=== PATIENT | male | born 1945 | race Caucasian/White ===

== ENCOUNTER 2020-07-11 07:34 | Outpatient (CLI) | payer MEDICARE, SELFPAY ==
[2020-07-12 13:29] LABS: SARS-CoV-2 RNA PCR Negative
== END 2020-07-11 07:35 | disposition home or self-care (01) ==
LOC: CHSLAB 07:40
PROVIDERS: PCP Internal Medicine; Visit Provider Internal Medicine Gastroenterology
DX: Z01.818 Encounter for other preprocedural examination (principal); Z20.822 Contact with and (suspected) exposure to COVID-19
CPT/HCPCS: C9803; U0003; U0005

== ENCOUNTER 2020-07-14 00:59 | Day surgery (SDC) | payer MEDICARE, BC, SELFPAY ==
[2020-07-09 09:34] VITALS: BMI 27.8
[2020-07-14 10:02] VITALS: BP 156/76; PULSE 57; RESP 16; TEMP 36.7; O2SAT 99
--- NOTE | 2020-07-14 10:13 | WPDANESEPPF ---
Anes - Initial Pre Proc Eval Procedure: Operation Date: 07/14/20 11:30 Proposed Procedures p Esophagogastroduodenoscopy & Colonoscopy - Chuckie Emmanuel MD Date/Time: 07/14/20 10:13 Surgeon: Chuckie Emmanuel MD Pre Op Diagnosis: Anemia Patient Data Age: 74 Gender: M Height: 1.83 m Weight: 100.2 kg Last Vital Signs Temp 36.7 C 07/14/20 10:02 Pulse 57 L 07/14/20 10:02 Resp 16 07/14/20 10:02 BP 156/76 H 07/14/20 10:02 Pulse Ox 99 07/14/20 10:02 Allergies Allergy/AdvReac Type Severity Reaction Status Date / Time No Known Allergies Allergy Verified 07/14/20 10:01 Home Medications Medication Instructions Recorded Confirmed Type amlodipine 10 mg tablet 10 mg PO DAILY 07/01/20 07/09/20 History fluoxetine 20 mg capsule 20 mg PO DAILY 07/01/20 07/09/20 History lisinopril 40 mg tablet 40 mg PO DAILY 07/01/20 07/09/20 History lovastatin 20 mg tablet 20 mg PO DAILY 07/01/20 07/09/20 History multivit with min-folic acid 1 tablet PO DAILY 07/09/20 07/09/20 History [Adult One Daily Multivitamin] omega 1-elt-xwh-fish oil [Fish Oil] 1 cap PO TID 07/09/20 07/09/20 History vitamin B complex [B 1 tablet PO DAILY 07/09/20 07/09/20 History Complex-Vitamin B12] Patient hx anesthesia problems: none Family hx anesthesia problems: none PMFSH Past Medical History Medical History (Updated 07/14/20 @ 10:15 by Rodrigo Rivers MD) Anxiety Colon cancer screening Depression Hyperlipidemia Hypertension Obesity Social History Social History (Updated 07/01/20 @ 14:15 by Dianna Barnard CMA) Smoking packs per day: 0.5 Smoking cigarettes per day: 10.0 Years smoked: 25 Smoking pack-years: 12.50 Smoking status: Former smoker Tobacco type: cigarettes Alcohol intake: current Substance use: never Substance use type: does not use Living arrangements: alone Gender identity (if verbalized by the patient): Male Spiritual care concerns: No Anes - Eval Final PreProcedure Day of Procedure 07/14/20 10:13 Patient weight: obese Heart: regular rate and rhythm Lungs: clear to auscultation and normal air movement Airway: Mallampati scale class II Neurological: alert and oriented Last oral intake: >/= 8 hours ASA classification: III Emergent: no Anesthetic plan: proceed Anesthesia type and monitoring: general GIVS Informed Consent: The patient's anesthetic plan and its attendant risks and benefits were discussed with the patient/family/POA. Questions were solicited and answers provided to the satisfaction of the patient/family/POA.
[2020-07-14] MEDS: LACTATED RINGERS 1,000 ML 150 ML IV CONT (10:17)
--- NOTE | 2020-07-14 10:34 | WPDHPUPDATE1 ---
History and Physical Update Update Date/Time: 07/14/20 10:34 History and Physical has been reviewed, including an updated exam of the patient. There are NO changes in the patient's condition. Risks, benefits, and alternatives have been discussed and questions answered. Patient agrees to proceed with procedure.
[2020-07-14 11:00] VITALS: BP 123/65; PULSE 66; RESP 18; O2SAT 100
[2020-07-14 11:10] VITALS: BP 135/72; PULSE 64; RESP 22; O2SAT 99
[2020-07-14 11:20] VITALS: BP 146/48; PULSE 60; RESP 18; O2SAT 100
== END 2020-07-14 11:38 | disposition home or self-care (01) ==
PROVIDERS: PCP Internal Medicine; Visit Provider Internal Medicine Gastroenterology
PROC: 0DJ08ZZ Inspection of Upper Intestinal Tract, Via Natural or Artificial Opening Endoscopic (ICD-10-PCS; CPT 43235; principal; 2020-07-14 11:30)
DX: D64.9 Anemia, unspecified (principal); D12.2 Benign neoplasm of ascending colon; K57.30 Diverticulosis of large intestine without perforation or abscess without bleeding; K29.50 Unspecified chronic gastritis without bleeding; B96.81 Helicobacter pylori [H. pylori] as the cause of diseases classified elsewhere; K44.9 Diaphragmatic hernia without obstruction or gangrene; K22.2 Esophageal obstruction; I10 Essential (primary) hypertension; E78.5 Hyperlipidemia, unspecified; F41.8 Other specified anxiety disorders; E66.9 Obesity, unspecified; Z68.30 Body mass index [BMI] 30.0-30.9, adult; Z87.891 Personal history of nicotine dependence
CPT/HCPCS: 45385; 43239; 88305; 88342; J2704; J7120

== ENCOUNTER 2021-02-09 13:04 | Outpatient (CLI) | payer MEDICARE, BC, SELFPAY ==
[2021-02-09 14:38] LABS: SARS-CoV-2 Ag Negative (Negative)
== END 2021-02-09 13:05 | disposition home or self-care (01) ==
LOC: CHSLAB 13:07
PROVIDERS: PCP Internal Medicine; Visit Provider Internal Medicine
DX: J06.9 Acute upper respiratory infection, unspecified (principal); Z20.822 Contact with and (suspected) exposure to COVID-19
CPT/HCPCS: 87426; C9803

== ENCOUNTER 2022-11-01 10:46 | Outpatient (CLI) | payer MEDICARE, BC, SELFPAY ==
--- NOTE | ~2022-11-01 | XR_ITS ---
XR chest 2V 11/01/2022 11:01 Indication: Wheezing and cough Procedure: 2 view chest Comparison: Comparison to multiple prior studies sequentially, with oldest reviewed study dated 02/02. Findings: There is extensive bilateral airspace disease with peribronchial thickening. No pleural eff usion. No acute osseous abnormality. The lungs are hyperinflated which is consistent with, but not di agnostic of chronic obstructive pulmonary disease. There is thoracic spondylosis. Impression: 1: Extensive bilateral airspace disease which may represent pneumonia or edema. Reviewed, dictated and finalized at location B. Impression: 1: Extensive bilateral airspace disease which may represent pneumonia or edema.
[2022-11-01 17:06] LABS: Hematocrit 40.2 % (37.0-46.0); Hemoglobin 13.2 g/dL (12.4-15.3); Mean Corpuscular HGB Conc 32.8 g/dL (32.0-36.0); Mean Corpuscular Hemoglobin 30.8 pg (27.0-31.0); Mean Corpuscular Volume 93.9 fL (78.0-102.0); Mean Platelet Volume 10.5 fl (8.7-11.0); Platelet Count Result 245 K/mm3 (150-420); Red Blood Count 4.28 M/mm3 (4.70-6.10); Red Cell Distribution Width 13.2 % (11.6-14.4); White Blood Count 6.7 K/mm3 (4.8-10.8)
[2022-11-01 17:15] LABS: Alanine Aminotransferase 29 U/L (16-63); Albumin Level 3.7 g/dL (3.4-5.0); Alkaline Phosphatase 68 U/L (46-116); Anion Gap 10 mmol/L (8-16); Aspartate Amino Transferase 31 U/L (15-37); Bilirubin,Total 0.4 mg/dL (0.00-1.00); Blood Urea Nitrogen 18 mg/dL (7-18); Calcium 8.9 mg/dL (8.5-10.1); Carbon Dioxide 28 mmol/L (21-32); Chloride 99 mmol/L (98-108); Creatine Kinase 108 U/L (39-308); Estimated Glomerular Filt Rate > 60; Glucose 115 mg/dL (70-99); Osmolality Calculated 286 mOsm/kg (285-295); Potassium 4.4 mmol/L (3.5-5.1); Sodium 137 mmol/L (136-145)
[2022-11-01 17:40] LABS: Band Neutrophils Percent 0 % (0-6); Basophils Percent Manual 0 % (0-1); Eosinophils Percent Manual 0 % (1-6); Lymphocytes Absolute Manual 1.67 K/mm3 (1.1-4.5); Lymphocytes Percent Manual 25 % (18-44); Monocytes Percent Manual 6 % (3-9); Neutrophils Absolute Manual 4.62 K/mm3 (1.3-6.7); Neutrophils Percent Manual 69 % (46-73); Platelet Estimate Adequate (Adequate); Total Cells Counted 100
[2022-11-01 17:47] LABS: Influenza A QL RT-PCR Negative (Negative); Influenza B QL RT-PCR Negative (Negative); SARS-CoV-2 RNA PCR Negative (Negative)
== END 2022-11-01 10:47 | disposition home or self-care (01) ==
PROVIDERS: PCP Internal Medicine; Visit Provider Internal Medicine
DX: R05.9 Cough, unspecified (principal); R06.2 Wheezing; R91.8 Other nonspecific abnormal finding of lung field
CPT/HCPCS: 36415; 71046; 80053; 82550; 85025; 87636

== ENCOUNTER 2022-11-09 09:58 | Outpatient (CLI) | payer MEDICARE, BC, SELFPAY ==
--- NOTE | ~2022-11-09 | XR_ITS ---
Clinical Indication: Pneumonia PA and lateral views of the chest: Comparison: 11/01/2022 Findings: The lungs are clear, without evidence of focal consolidation or pleural effusion. Probable COPD. Cardiomediastinal silhouette is within normal limits. Bones and soft tissues are unremarkable. Impression: COPD. No definite acute abnormality evident. Reviewed, dictated and finalized at location . Impression: COPD. No definite acute abnormality evident.
== END 2022-11-09 09:59 | disposition home or self-care (01) ==
LOC: CHSIMG 10:04
PROVIDERS: PCP Internal Medicine; Visit Provider Internal Medicine
DX: J18.9 Pneumonia, unspecified organism (principal); J44.9 Chronic obstructive pulmonary disease, unspecified
CPT/HCPCS: 71046

== ENCOUNTER 2022-11-17 13:26 | Outpatient (CLI) | payer MEDICARE, BC, SELFPAY ==
--- NOTE | ~2022-11-17 | XR_ITS ---
Clinical Indication: Pneumonia PA and lateral views of the chest: Comparison: 11/09/2022 Findings: There is slightly more prominent focal airspace opacity at the right midlung, likely focal scarring or atelectasis. Probable underlying COPD. Cardiomediastinal silhouette is within normal limi ts. Bones and soft tissues are unremarkable. Impression: Slightly more prominent probable scarring or atelectasis at the right midlung. Probable underlying COPD. Reviewed, dictated and finalized at location . Impression: Slightly more prominent probable scarring or atelectasis at the right midlung. Probable underlying COPD.
== END 2022-11-17 13:27 | disposition home or self-care (01) ==
LOC: CHSIMG 13:29
PROVIDERS: PCP Internal Medicine; Visit Provider Internal Medicine
DX: J18.9 Pneumonia, unspecified organism (principal); R91.8 Other nonspecific abnormal finding of lung field
CPT/HCPCS: 71046

== ENCOUNTER 2022-11-19 10:18 | Outpatient (CLI) | payer MEDICARE, BC, SELFPAY ==
--- NOTE | ~2022-11-19 | CT_ITS ---
CT Scan of the Chest without Contrast: Clinical Indication: Cough Technique: Contiguous sections were acquired throughout the chest without intravenous contrast. Dose reduction technique was used on this scan by utilizing automated exposure control and iterative recon struction technique. The dose-length product (DLP) was 375.22 mGy-cm. Findings: There are densely calcified lymph nodes at the AP window/prevascular region, and the left hilar/left paratracheal region. Additional calcified nodes present in the right hilar and subcarinal region.. No aortic aneurysm. There is no evidence of pleural or pericardial effusion. There is right middle lobe linear scarring. There is additional focal scarring or atelectasis at the right lower lobe. There is additional scarring at the lingula. Several small, scattered calcified gra nulomas are noted in the lungs. Images through the upper abdomen reveal calcified splenic granulomas. 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 Impression: Areas of pulmonary scarring at the right middle lobe, lingula, and right lower lobe. Evidence of prior granulomatous disease. Reviewed, dictated and finalized at location . Impression: Areas of pulmonary scarring at the right middle lobe, lingula, and right lower lobe. Evidence of prior granulomatous disease.
== END 2022-11-19 10:19 | disposition home or self-care (01) ==
LOC: CHSIMG 10:20
PROVIDERS: PCP Internal Medicine; Visit Provider Internal Medicine
DX: R91.8 Other nonspecific abnormal finding of lung field (principal); R05.1 Acute cough
CPT/HCPCS: 71250

== ENCOUNTER 2022-12-20 07:31 | Outpatient (CLI) | payer MEDICARE, BC, SELFPAY ==
--- NOTE | 2022-12-20 09:00 | EST_ITS ---
Patient Info Name: Keagan Mcdonough Age: 77 years : 1945 Gender: Male Ht: 73 in Wt: 232 lbs BSA: 2.35 m2 HR: 63 bpm BP: 154 / 74 mmHg Heart Rhythm: Bradycardia Technical Quality: Excellent Exam Date: 12/20/2022 8:58 AM Exam Location: [facility] Patient Status: Outpatient Admit Date: 12/20/2022 Staff Ordering Physician: Antonio Titus MD Attending Provider: Antonio Titus MD Exercise Technologist: Maria Victoria Urbano CRT Exercise Physician: Britany Arevalo CEP Exam Type: CA stress michael w NM Study Info A nuclear stress test was performed. History/Risk Factors Hypertension: Yes Dyslipidemia: Yes Obesity: Yes Diabetes Mellitus: No Tobacco Use: Former History/Risk Factors HTN. Former Smoker. Obese. Dyslipidemia. Summary 1. 1. Negative lexiscan stress test for ischemic ST changes by ECG criteria. 2. 2. Baseline hypertension. 3. 3. Nuclear scan to follow and will be reported separately. Please correlate with it. Protocol: LEXISCAN Stress ECG Details Stage: REST Duration (min): 3 min : 24 sec HR (bpm): 56 SBP (mmHg): 154 DBP (mmHg): 74 Stage: REST Duration (min): 6 min : 15 sec HR (bpm): 59 SBP (mmHg): 154 DBP (mmHg): 74 Stage: STAGE 1 Duration (min): 0 min : 13 sec HR (bpm): 56 SBP (mmHg): 154 DBP (mmHg): 74 Stage: RECOVERY Duration (min): 0 min : 46 sec HR (bpm): 78 SBP (mmHg): 154 DBP (mmHg): 74 Stage: RECOVERY Duration (min): 1 min : 46 sec HR (bpm): 73 SBP (mmHg): 154 DBP (mmHg): 74 Stage: RECOVERY Duration (min): 2 min : 46 sec HR (bpm): 72 SBP (mmHg): 166 DBP (mmHg): 59 Stage: RECOVERY Duration (min): 3 min : 46 sec HR (bpm): 61 SBP (mmHg): 163 DBP (mmHg): 60 Stage: RECOVERY Duration (min): 4 min : 46 sec HR (bpm): 62 SBP (mmHg): 155 DBP (mmHg): 57 Stage: RECOVERY Duration (min): 5 min : 46 sec HR (bpm): 71 SBP (mmHg): 155 DBP (mmHg): 57 Stage: RECOVERY Duration (min): 6 min : 3 sec HR (bpm): 66 SBP (mmHg): 163 DBP (mmHg): 62 Rest HR: 59 bpm Peak HR: 81 bpm Rest Sys BP: 154 mmHg Peak Sys BP: 166 mmHg Max Pred HR: 141 bpm % Max Pred HR: 57 % Target HR: 120 bpm Max RPP: 13,446 bpm*mmHg Termination Reason: Completion of Protocol Cardiac Symptoms: Dyspnea Total Time: 0 min : 13 sec Rest Gary BP: 74 mmHg Peak Gary BP: 59 mmHg Total Dose: 0.4 mg Resting ECG Sinus bradycardia, cannot r/o septal infarct, age indeterminate. Stress ECG No ST changes. Arrhythmias Occasional PVCs. Report Signatures
--- NOTE | 2022-12-20 13:42 | WPDCARIOSTRE ---
Nuclear Stress Test INDICATIONS Indications: Dyspnea PROCEDURE Procedure Performed: Myocardial Perf Spect-Multi Procedure: Patient underwent a lexican stress test and immediately was injected with 34.9 mCi of cardiolyte. Multiple tomographic images were obtained. These are of good quality. There is evidence of moderate size, moderate severity basal to mid anterior perfusion defect with stress imaging. A separate resting images were obtained after patient was injected with 10.5 mCi of cardiolyte. Multiple tomographic images were obtained. These are of good quality. There is evidence of moderate size, moderate severity basal to mid anterior perfusion defect with rest imaging. CONCLUSION Conclusion: 1. Myocardial perfusion imaging demonstrating fixed moderate size basal to mid anterior perfusion defect suggestive of breast attenuation artifact. 2. No reversible ischemia. 3. Left ventriculogram demonstrate normal measured ejection fraction of 68% with no wall motion abnormalities. 4. TID score 0.96 is normal.
== END 2022-12-20 07:32 | disposition home or self-care (01) ==
LOC: CHSIMG 07:35
PROVIDERS: PCP Internal Medicine; Visit Provider Internal Medicine
DX: R06.00 Dyspnea, unspecified (principal); I10 Essential (primary) hypertension
CPT/HCPCS: 78452; 93017; A9502; J2785

== ENCOUNTER 2023-07-06 10:09 | Outpatient (CLI) | payer MEDICARE, BC, SELFPAY ==
--- NOTE | ~2023-07-06 | US_ITS ---
EXAMINATION:US venous doppler LE RT INDICATION:Postop swelling and pain TECHNIQUE: Multiple grayscale, color flow and Doppler images of the right lower extremity deep venous systems were obtained and reviewed. COMPARISON:No prior studies for comparison. FINDINGS: The common femoral, superficial femoral and popliteal veins demonstrate normal respiratory variation, augmentation and compressibility. Color flow is also seen within the posterior tibial, pe roneal, greater saphenous and profunda veins. There is a Pat's cyst of the popliteal fossa. IMPRESSION: 1: No lower extremity deep venous thrombosis. Reviewed, dictated and finalized at location B. ER CUSTOMER SERVICE ASSOCIATE
--- NOTE | ~2023-07-06 | CT_ITS ---
EXAMINATION: CT knee RT wo con DATE: 07/06/2023 10:57 INDICATION: Right knee pain and swelling TECHNIQUE: High resolution computed tomography (CT) of the right knee was performed without intraveno us contrast. Additional sagittal and coronal reconstructions were performed. Automated exposure contr ol and iterative reconstruction technique were employed. The dose-length product was 506.87 mGy-cm. COMPARISON: None FINDINGS: Right total knee arthroplasty with patellar resurfacing which is in near-anatomic alignment. No fract ure. No periprosthetic lucency to suggest loosening. Minimal knee joint effusion at the suprapatellar pouch. Relatively uniform mild diffuse fatty atrophy of the musculature of the distal thigh and prox imal calf. IMPRESSION: 1. Expected appearance of a right total knee arthroplasty with patellar resurfacing with no acute oss eous abnormality. Reviewed, dictated and finalized at location A. AT PROOFREADER IMPRESSION: 1. Expected appearance of a right total knee arthroplasty with patellar resurfa cing with no acute osseous abnormality.
== END 2023-07-06 10:10 | disposition home or self-care (01) ==
LOC: CHSIMG 10:11
PROVIDERS: PCP Internal Medicine; Visit Provider Internal Medicine
DX: M79.89 Other specified soft tissue disorders (principal); Z96.651 Presence of right artificial knee joint
CPT/HCPCS: 73700; 93971

== ENCOUNTER 2023-11-28 01:05 | Day surgery (SDC) | payer MEDICARE, BC, SELFPAY ==
[2023-11-16 08:42] VITALS: BMI 32.0
--- NOTE | 2023-11-28 09:03 | WPDANESEPPF ---
Anes - Initial Pre Proc Eval Procedure: Operation Date: 11/28/23 11:00 Proposed Procedures p Colonoscopy - Chuckie Emmanuel MD Date/Time: 11/28/23 09:03 Surgeon: Chuckie Emmanuel MD Pre Op Diagnosis: Personal hx. colon polyps Patient Data Age: 77 Gender: M Height: 1.85 m Weight: 110 kg Allergies Allergy/AdvReac Type Severity Reaction Status Date / Time No Known Allergies Allergy Verified 11/28/23 09:43 Home Medications Medication Instructions Recorded Confirmed Type fluoxetine 20 mg capsule 20 mg PO DAILY 07/01/20 11/16/23 History lisinopril 40 mg tablet 40 mg PO DAILY 07/01/20 11/16/23 History lovastatin 20 mg tablet 20 mg PO DAILY 07/01/20 11/16/23 History multivitamin with minerals-folic 1 tablet PO DAILY 07/09/20 11/16/23 History acid 0.4 mg tablet (Adult One Daily Multivitamin) omega 7-tce-wmp-fish oil 1,200 mg 1 cap PO TID 07/09/20 11/16/23 History (144 mg-216 mg) capsule (Fish Oil) vitamin B complex (B 1 tablet PO DAILY 07/09/20 11/16/23 History Complex-Vitamin B12 tablet) meloxicam 15 mg tablet 15 mg PO DAILY 11/16/23 11/16/23 History Patient hx anesthesia problems: none Family hx anesthesia problems: none Results Review: All pre-operative results and documents have been reviewed as part of the pre-operative evaluation. [facility] Past Medical History Medical History (Updated 07/14/20 @ 10:15 by Rodrigo RiversMD) Anxiety Colon cancer screening Depression Hyperlipidemia Hypertension Obesity Social History Social History (Updated 07/01/20 @ 14:15 by Dianna Barnard CMA) Smoking packs per day: 0.5 Smoking cigarettes per day: 10.0 Years smoked: 20 Smoking pack-years: 10.00 Smoking status: Former smoker Tobacco type: cigarettes Alcohol intake: current Alcohol use details: 1 case/week Substance use: never Substance use type: does not use Living arrangements: with family Occupation/Education: retired Gender identity (if verbalized by the patient): Male Spiritual care concerns: No Anes - Eval Final PreProcedure Day of Procedure 11/28/23 09:03 Patient weight: obese Heart: regular rate and rhythm Lungs: clear to auscultation Airway: Mallampati scale class II Neurological: alert and oriented Last oral intake: >/= 8 hours ASA classification: III Emergent: no Anesthetic plan: proceed Anesthesia type and monitoring: general GIVS and standard monitoring Results Review: All pre-operative results and documents have been reviewed as part of the pre-operative evaluation. Informed Consent: The patient's anesthetic plan and its attendant risks and benefits were discussed with the patient/family/POA. Questions were solicited and answers provided to the satisfaction of the patient/family/POA.
[2023-11-28 09:46] VITALS: BP 148/78; PULSE 67; RESP 20; TEMP 36.4; O2SAT 99
[2023-11-28] MEDS: LACTATED RINGERS 1,000 ML 150 ML IV CONT (09:57)
--- NOTE | 2023-11-28 11:02 | PM.HPGS ---
History of Present Illness History of Present Illness Consent: Risks, benefits, and alternatives have been discussed and questions answered. Patient agrees to proceed with procedure. Chief complaint: Personal hx. colon polyps Narrative: Keagan Mcdonough Jr. is a 77 year old male with colon polyps in 2020 Review of Systems Review of Systems: All systems reviewed & are unremarkable except as noted in HPI and below PMFSH Past Medical History Medical History (Updated 11/28/23 @ 11:03 by Chuckie Emmanuel MD) Adenomatous colon polyp Anxiety Colon cancer screening Depression Hyperlipidemia Hypertension Obesity Social History Social History (Updated 07/01/20 @ 14:15 by Dianna Barnard CMA) Smoking packs per day: 0.5 Smoking cigarettes per day: 10.0 Years smoked: 20 Smoking pack-years: 10.00 Smoking status: Former smoker Tobacco type: cigarettes Alcohol intake: current Alcohol use details: 1 case/week Substance use: never Substance use type: does not use Living arrangements: with family Occupation/Education: retired Gender identity (if verbalized by the patient): Male Spiritual care concerns: No Meds Home Medications and Allergies Home Medications Medication Instructions Recorded Confirmed Type fluoxetine 20 mg capsule 20 mg PO DAILY 07/01/20 11/16/23 History lisinopril 40 mg tablet 40 mg PO DAILY 07/01/20 11/16/23 History lovastatin 20 mg tablet 20 mg PO DAILY 07/01/20 11/16/23 History multivitamin with minerals-folic 1 tablet PO DAILY 07/09/20 11/16/23 History acid 0.4 mg tablet (Adult One Daily Multivitamin) omega 4-sfl-vbe-fish oil 1,200 mg 1 cap PO TID 07/09/20 11/16/23 History (144 mg-216 mg) capsule (Fish Oil) vitamin B complex (B 1 tablet PO DAILY 07/09/20 11/16/23 History Complex-Vitamin B12 tablet) meloxicam 15 mg tablet 15 mg PO DAILY 11/16/23 11/16/23 History Allergies Allergy/AdvReac Type Severity Reaction Status Date / Time No Known Allergies Allergy Verified 11/28/23 09:43 Vital Signs Vital Signs - 24 hr 11/28/23 09:46 Temperature 97.5 F L Pulse Rate 67 Respiratory Rate 20 Blood Pressure 148/78 H Pulse Oximetry 99 Oxygen Delivery Room Air Exam Const: General: comfortable and no acute distress HENMT: Face/Nose/Sinus: Normal nares present Eyes: General: appearance normal, both eyes and all related structures Neck: Neck: no JVD Resp: Auscultation: clear to auscultation bilaterally Cardio: Rate: regular rate Rhythm: regular rhythm GI: Inspection: non-distended GI Palp: Yes Soft to palpation Skin: General skin exam: normal color Neuro: General: gait normal Speech: normal speech Extrem: General: normal to inspection Psych: Mental Status: mental status grossly normal Assessment and Plan Assessment and plan (1) Adenomatous colon polyp: Code(s): D12.6 - Benign neoplasm of colon, unspecified Status: Acute Assessment and Plan: colonoscopy
[2023-11-28 11:19] VITALS: BP 117/81; PULSE 64; RESP 18; O2SAT 98
[2023-11-28 11:29] VITALS: BP 142/80; PULSE 70; RESP 19; O2SAT 100
[2023-11-28 11:39] VITALS: BP 143/78; PULSE 58; RESP 12; O2SAT 99
--- NOTE | 2023-11-28 12:14 | SUR.PHASEII ---
PT. waiting for his ride
== END 2023-11-28 11:55 | disposition home or self-care (01) ==
PROVIDERS: PCP Internal Medicine; Visit Provider Internal Medicine Gastroenterology
PROC: 0DJD8ZZ Inspection of Lower Intestinal Tract, Via Natural or Artificial Opening Endoscopic (ICD-10-PCS; CPT 45378; principal; 2023-11-28 11:00)
DX: Z12.11 Encounter for screening for malignant neoplasm of colon (principal); D12.3 Benign neoplasm of transverse colon; K63.5 Polyp of colon; K57.30 Diverticulosis of large intestine without perforation or abscess without bleeding; K64.8 Other hemorrhoids; I10 Essential (primary) hypertension; E78.5 Hyperlipidemia, unspecified; F41.9 Anxiety disorder, unspecified; F32.A Depression, unspecified; Z87.891 Personal history of nicotine dependence
CPT/HCPCS: 45385; 88305; J2001; J2704; J7120

== ENCOUNTER 2025-02-06 15:56 | Outpatient (CLI) | payer MEDICARE, BC, SELFPAY ==
--- NOTE | ~2025-02-06 | XR_ITS ---
XR chest 2V 02/06/2025 16:44 Indication: Dyspnea and chest pain Procedure: PA and lateral views of the chest Comparison: Comparison to multiple prior studies sequentially, with oldest reviewed study dated 11/01/2022. Findings: There are chronic infiltrates of the right middle lobe and lingula dating back to 11/01/2022. Differential diagnosis includes chronic or recurrent aspiration pneumonia, atypical mycobacterial infection, focused infectious fibrosis, interstitial lung disease such as idiopathic pulmonary fibrosis and chronic hypersensitivity pneumonitis. Impression: 1: Chronic bilateral infiltrates primarily involving the right middle lobe and lingula. Differential diagnosis discussed above. Reviewed, dictated and finalized at location O. Impression: 1: Chronic bilateral infiltrates primarily involving the right middle lobe and lingula. Differential diagnosis discussed above.
--- OUTSIDE RECORDS SUMMARY | 2025-02-06 16:01 | XMS_ITS | Clinical Summary ---
Author Organization [employer] [facility] Address [address] 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
--- OUTSIDE RECORDS SUMMARY | 2025-02-06 16:01 | XMS_ITS | Clinical Summary ---
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 Gender Identity Not on file Sexual Orientation Not on file Plan of Treatment Health Maintenance Due Date Last Done Comments DTaP, Tdap and Td Vaccines ( 1 - Tdap) 12/18/1962 Pneumococcal Vaccine: 50+ Ye ars (1 of 1 - PCV) 12/18/1993 Zoster Vaccines (1 of 2) 12/18/1993 Annual Medicare Wellness Visit 12/18/2008 RSV Immunization or 60+ Years (1 - 1-dose 75+ series) 12/18/2018 COVID-19 Vaccine (2023-2 5 season) 2024 Meningococcal B Vaccine Aged Out No l onger eligible based on patient's age to complete this topic Meningococcal Vaccine Aged Out No jony eb eligible based on patient's age to complete this topic RSV Immunizations Under 20 Months Aged Out No longer eligible based on patient's age to complete this topic Insurance MEDICARE [facility] Care Teams Chainman Relationship Specialty Start Date End Date Antonio Titus MD [address] [place] [address] PCP - General INTERNAL MEDICINE 09/02/22
--- OUTSIDE RECORDS SUMMARY | 2025-02-06 16:01 | XMS_ITS | Encounter Summary ---
Author Organization [facility] Address [address] [place]: Epic [place] [address] Care Team Providers Care Technical Support Manager Name Role Phone Unavailable Primary Care Provider Unavailabl e Encounter Details Date Type Department Care Team (Late st Contact Info) Description 06/16/1993 Outpatient Historical Vikram Olsen MD [address] 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
--- OUTSIDE RECORDS SUMMARY | 2025-02-06 16:01 | XMS_ITS | Clinical Summary ---
Author Organization [facility] Address [address] [place] [address] Care Team Providers Care Live Games Dealer Name Role Phone Antonio Titus MD Primary Care Provider Allergies No known active allergies Medications amLODIPine (NORVASC) 10 mg tablet 12/17/2021 Active FLUoxetine (PROzac) 20 mg capsule 12/17/2021 Active lisinopriL (PRINIVIL,ZESTRIL) 40 mg tablet 12/17/2021 Active lovastatin (MEVACOR) 20 mg tablet 12/17/2021 Active Active Problems No known active problems Immunizations Immunization Administration Dates Next Due Influenza, Trivalent, High D ose, Split, Preservative Free, Intramuscular 04/16/2013 Influenza, Trivalent, Preservative Free, Intramu scular 03/05/2015 Pneumococcal Conjugate PCV 13 04/21/2015 Pneumococcal Polysaccharide PPV23 11/14/2015 Social History Tobacco Use Types Packs/Day Years Used Date Smoking Tobacco: Never Smokeless Tobacco: Never Personal Safety Answer Date Recorded Getting School Help Needed Not on file 08/26 Sex and Gender Information Value Date Recorded Sex Assigned at Not on file 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 Gender Identity Not on file Sexual Orientation Not on file Obstetrics History Last Filed Vital Signs Vital Sign Reading Time Taken Comments Blood Pressure - - Pulse - - Temperature - - Respiratory Rate - - Oxygen Saturation - - Inhaled Oxygen Concentration - - Weight 107.1 kg (236 lb 3.2 oz) 01/12/2022 2:47 PM CDT Height 181.6 cm (5' 11.5) 01/12/2022 2:47 PM CD T Body Mass Index 32.48 01/12/2022 2:47 PM CDT Plan of Treatment Not on file Insurance MEDICARE [employer] IN MEDICARE View[employer] IN MEDICARE [employer] [facility] Care Teams Live Games Dealer Relationship Specialty Start Date End Date Antonio Titus MD [address] [place] [address] PCP - General 01/12/21
--- OUTSIDE RECORDS SUMMARY | 2025-02-06 16:01 | XMS_ITS | Encounter Summary ---
Author Organization [facility] Address [address] [place]so: Epic [place] [address] Care Team Providers Care Podiatric Aide Name Role Phone Unavailable Primary Care Provider Unavailabl e Encounter Details Date Type Department Care Team (Late st Contact Info) Description 06/01/1993 Outpatient Historical Vikram Olsen MD [address] 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
[2025-02-06 16:23] LABS: Hematocrit 40.0 % (37.0-46.0); Hemoglobin 13.1 g/dL (12.4-15.3); Mean Corpuscular HGB Conc 32.8 g/dL (32-36); Mean Corpuscular Hemoglobin 30.8 pg (27.0-31.0); Mean Corpuscular Volume 94.1 fL (78.0-102.0); Platelet Count Result 260 K/mm3 (150-420); Red Blood Count 4.25 M/mm3 (4.70-6.10); White Blood Count 8.4 K/mm3 (4.8-10.8)
[2025-02-06 16:29] LABS: Alanine Aminotransferase 33 U/L (6-50); Albumin Level 4.5 g/dL (3.5-5.1); Alkaline Phosphatase 60 U/L (38-126); Anion Gap 10 mmol/L (4-12); Aspartate Amino Transferase 33 U/L (17-59); Bilirubin,Total 0.4 mg/dL (0.2-1.3); Blood Urea Nitrogen 21 mg/dL (9-20); Calcium 9.9 mg/dL (8.4-10.2); Carbon Dioxide 29 mmol/L (22-30); Chloride 105 mmol/L (98-107); Estimated Glomerular Filt Rate > 60; Glucose 123 mg/dL (65-110); Osmolality Calculated 302 mOsm/kg (285-295); Potassium 4.1 mmol/L (3.4-5.0); Sodium 144 mmol/L (137-145); Total Protein 7.2 g/dL (6.3-8.2)
[2025-02-06 16:37] LABS: NT Pro B Type Natriuretic Pept 219 pg/mL (19.9-100)
== END 2025-02-06 15:57 | disposition home or self-care (01) ==
LOC: CHSLAB 15:58
PROVIDERS: PCP Internal Medicine; Visit Provider Internal Medicine
DX: R06.00 Dyspnea, unspecified (principal); R07.9 Chest pain, unspecified; R92.8 Other abnormal and inconclusive findings on diagnostic imaging of breast
CPT/HCPCS: 36415; 71046; 80053; 83880; 85027; 85380

== ENCOUNTER 2025-02-07 15:17 | Outpatient (CLI) | payer MEDICARE, BC, SELFPAY ==
--- NOTE | ~2025-02-07 | CT_ITS ---
EXAMINATION: CTA chest PE protocol, 02/07/2025 15:30 CDT HISTORY: dyspnea/positive D dimer COMPARISON: Comparison 11/19/2022. TECHNIQUE: CTA examination is obtained with contrast CTA examination technique is performed with arterial phase of contrast-enhancement. 3-D reconstruction with thin MIP axial and MPR coronal imaging is provided Isovue 300, 92cc injected IV. One or more of the following dose reduction techniques were used: automated exposure control, adjustment of the mA and/or kV according to patient size, use of iterative reconstruction technique. FINDINGS: No significant coronary calcification is present ([id number]) LUNGS: [id number] simple appearing left pleural effusion. Trace right pleural effusion. The contrast bolus is adequate, there is no pulmonary embolism identified. No tracheomalacia. No bronchiectasis. Minimal emphysematous changes. No areas of bullous formation. Minimal pulmonary fibrotic changes noted. No honeycombing is evident. Mild pulmonary venous congestion. Small infiltrate noted in the left upper lung posteriorly and inferiorly. Small infiltrate noted in the right lower lobe which appears slightly nodular measuring 1.5 x 1.4 cm. Minimal infiltrate noted in the inferior aspect of the right upper lung posteriorly. HEART AND PERICARDIUM: Within normal limits. AORTA: Normal caliber aorta.. PULMONARY ARTERIES: No pulmonary embolism ADENOPATHY/MEDIASTINUM: Enlarged right pretracheal lymph node 1.6 x 1.6 cm. There are calcified prominent subcarinal and hilar lymph nodes noted. LIMITED VIEWS OF THE ABDOMEN: Punctate calcified splenic granulomas. The visualized gallbladder appears contracted. Very small hiatal hernia. OSSEOUS STRUCTURES: No sclerotic or lytic lesions. No acute rib fractures. There are remote right-sided posterolateral rib fractures noted. OVERLYING SOFT TISSUES: Unremarkable. THYROID: The thyroid is unremarkable. IMPRESSION: 1. Negative for pulmonary embolism. 2. Bilateral probable areas of bronchopneumonia, nodular focus in the right lower lobe is probably infectious however follow-up is recommended to ensure complete resolution, underlying neoplasm is not excluded. Mediastinal lymphadenopathy which may be reactive or possibly sequelae of prior granulomatou s disease. Reviewed, dictated and finalized at location A. IMPRESSION: 1. Negative for pulmonary embolism. 2. Bilateral probable areas of bronchopneumonia, nodular focus in the right low er lobe is probably infectious however follow-up is recommended to ensure compl ete resolution, underlying neoplasm is not excluded. Mediastinal lymphadenopath y which may be reactive or possibly sequelae of prior granulomatous disease.
--- OUTSIDE RECORDS SUMMARY | 2025-02-07 15:21 | XMS_ITS | Encounter Summary ---
[facility] Organization [facility] Address [address] [place]fon[place]: Epic [place] [address] Care Team Providers Care Data Entry Name Role Phone Unavailable Primary Care Provider Unavailabl e Encounter Details Date Type Department Care Team (Late st Contact Info) Description 06/16/1993 Outpatient Historical Vikram Olsen MD [address] 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
--- OUTSIDE RECORDS SUMMARY | 2025-02-07 15:21 | XMS_ITS | Clinical Summary ---
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
--- OUTSIDE RECORDS SUMMARY | 2025-02-07 15:21 | XMS_ITS | Clinical Summary ---
Author Organization [facility] Address [address] 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
--- OUTSIDE RECORDS SUMMARY | 2025-02-07 15:21 | XMS_ITS | Encounter Summary ---
Author Organization [facility] Address [address] Alfonso: Epic [place] [address] Care Team Providers Care Director Of Casino Name Role Phone Unavailable Primary Care Provider Unavailabl e Encounter Details Date Type Department Care Team (Late st Contact Info) Description 06/01/1993 Outpatient Historical Vikram Olsen MD [address] 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
--- OUTSIDE RECORDS SUMMARY | 2025-02-07 15:22 | XMS_ITS | Clinical Summary ---
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
== END 2025-02-07 15:18 | disposition home or self-care (01) ==
LOC: CHSIMG 15:18
PROVIDERS: PCP Internal Medicine; Visit Provider Internal Medicine
DX: R06.00 Dyspnea, unspecified (principal); R79.1 Abnormal coagulation profile; J18.0 Bronchopneumonia, unspecified organism; R59.0 Localized enlarged lymph nodes
CPT/HCPCS: 71275; Q9967

== ENCOUNTER 2025-02-18 09:15 | Outpatient (CLI) | payer MEDICARE, BC, SELFPAY ==
--- NOTE | 2025-02-18 09:23 | EST_ITS ---
Patient Info Name: Keagan Mcdonough Age: 79 years : 1945 Gender: Male Ht: 73 in Wt: 242 lbs BSA: 2.41 m2 HR: 65 bpm BP: 141 / 76 mmHg Heart Rhythm: Sinus Rhythm Technical Quality: Good Exam Date: 02/18/2025 9:23 AM Patient Status: O Admit Date: 02/18/2025 Exam Type: CA stress michael w NM A regadenoson stress test was performed. Staff Referring Physician: Antonio Titus MD Attending Provider: Antonio Titus MD Summary 1. 1. Negative lexiscan stress test for ischemic ST changes by ECG criteria. 2. 2. Baseline hypertension. 3. 3. Nuclear scan to follow and will be reported separately. Please correlate with it. History/Risk Factors Hypertension: Yes Dyslipidemia: Yes Protocol: LEXISCAN Stress ECG Details Stage: REST Duration (min): 5 min : 23 sec HR (bpm): 66 SBP (mmHg): 141 DBP (mmHg): 76 Stage: REST Duration (min): 8 min : 47 sec HR (bpm): --- SBP (mmHg): 141 DBP (mmHg): 76 Stage: STAGE 1 Duration (min): 0 min : 12 sec HR (bpm): 73 SBP (mmHg): 141 DBP (mmHg): 76 Stage: RECOVERY Duration (min): 0 min : 47 sec HR (bpm): 103 SBP (mmHg): 141 DBP (mmHg): 76 Stage: RECOVERY Duration (min): 1 min : 47 sec HR (bpm): 84 SBP (mmHg): 159 DBP (mmHg): 72 Stage: RECOVERY Duration (min): 2 min : 47 sec HR (bpm): 77 SBP (mmHg): 159 DBP (mmHg): 72 Stage: RECOVERY Duration (min): 3 min : 47 sec HR (bpm): 85 SBP (mmHg): 152 DBP (mmHg): 84 Stage: RECOVERY Duration (min): 4 min : 47 sec HR (bpm): 80 SBP (mmHg): 155 DBP (mmHg): 86 Stage: RECOVERY Duration (min): 5 min : 47 sec HR (bpm): 73 SBP (mmHg): 155 DBP (mmHg): 86 Stage: RECOVERY Duration (min): 6 min : 22 sec HR (bpm): 79 SBP (mmHg): 140 DBP (mmHg): 75 Peak HR: 108 bpm Rest Sys BP: 141 mmHg Peak Sys BP: 159 mmHg Max Pred HR: 139 bpm % Max Pred HR: 78 % Target HR: 118 bpm Max RPP: 17,172 bpm*mmHg BP Response: Normal blood pressure response Termination Reason: Completed Protocol Cardiac Symptoms: None Total Time: 0 min : 12 sec Rest Gary BP: 76 mmHg Peak Gary BP: 72 mmHg Total Dose: 0.4 mg Resting ECG Normal sinus rhythm, cannot r/o septal infarct, age indeterminate. Stress ECG No abnormal ST/T wave changes. Arrhythmias Frequent PVCs. Report Signatures
--- OUTSIDE RECORDS SUMMARY | 2025-02-18 09:31 | XMS_ITS | Clinical Summary ---
Author Organization [employer] [facility] Address [address] 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
--- OUTSIDE RECORDS SUMMARY | 2025-02-18 09:31 | XMS_ITS | Encounter Summary ---
Author Organization [facility] Address [address] Alfonso: Epic [place] [address] Care Team Providers Care [facility] Associate Name Role Phone Unavailable Primary Care Provider Unavailabl e Encounter Details Date Type Department Care Team (Late st Contact Info) Description 06/01/1993 Outpatient Historical Vikram Olsen MD [address] 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
--- OUTSIDE RECORDS SUMMARY | 2025-02-18 09:31 | XMS_ITS | Encounter Summary ---
Author Organization [facility] Address [address] [place]fonso: Epic [place] [address] Care Team Providers Care Child Care Sitter Name Role Phone Unavailable Primary Care Provider Unavailabl e Encounter Details Date Type Department Care Team (Late st Contact Info) Description 06/16/1993 Outpatient Historical Vikram Olsen MD [address] 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
--- NOTE | 2025-02-18 13:05 | WPDCARIOSTRE ---
Nuclear Stress Test INDICATIONS Indications: Dyspnea PROCEDURE Procedure Performed: Myocardial Perf Spect-Multi Procedure: Patient underwent a lexiscan stress test and immediately was injected with 35.0 mCi of cardiolyte. Multiple tomographic images were obtained. No perfusion defects with stress imaging. A separate resting images were obtained after patient was injected with 10.9 mCi of cardiolyte. Multiple tomographic images were obtained. No perfusion defects with rest imaging. CONCLUSION Conclusion: 1. Normal myocardial perfusion imaging demonstrating no perfusion defects with stress or rest imaging. 2. No evidence of reversible ischemia. 3. Left ventriculogram demonstrates normal measured ejection fraction of 61% with no wall motion abnormalities. 4. TID score 0.85 is not elevated.
== END 2025-02-18 09:16 | disposition home or self-care (01) ==
LOC: CHSCARD 09:17
PROVIDERS: PCP Internal Medicine; Visit Provider Internal Medicine
DX: R06.09 Other forms of dyspnea (principal); R79.1 Abnormal coagulation profile; M79.89 Other specified soft tissue disorders
CPT/HCPCS: 78452; 93017; A9502; J2785